=== PATIENT | male | born 1945 | race Caucasian/White ===

== ENCOUNTER 2017-12-09 05:37 | Day surgery (SDC) | payer MEDICARE, BC ==
[~2017-12-09] VITALS: Ht 177.8 cm; Wt 91.4 kg
[2017-12-09] VITALS (15 sets, daily range): BP systolic 103–119; BP diastolic 49–89; Ht 177.8 cm; Wt 91.4 kg
--- NOTE | ~2017-12-09 | OP ---
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 PROCEDURE: Anterior cervical discectomy and fusion with a PEEK interbody cage Biocell stem cell bone stem cell implant for allograft, removal of osteophytes, separate anterior cervical plate and screws from [facility]. SURGEON: Rosemary Farrell MD DESCRIPTION OF TECHNIQUE: After induction of general endotracheal anesthesia, the patient was positioned supine on the operating table with interscapular roll. The neck was prepped and draped in usual sterile fashion. Fluoroscopic x-ray and freer localized the C5 vertebral body. A transverse skin incision was carried out from the midline to the sternocleidomastoid muscle. The platysma was divided with Bovie cautery. Using blunt and sharp dissection with Metzenbaum scissors, I proceeded in an avascular plane medial to the carotid sheath. The C5-C6 and C6-C7 interspaces were identified with fluoroscopic x-ray and a spinal needle. The longus colli muscles were elevated from C5, C6, and C7 vertebral bodies. Osteophytes anteriorly were removed with Adson rongeurs. A self-retaining retractor was placed deep in the longus colli muscles. Valdese distracting pins were placed in the bodies of C5, C6, and C7. Disc space was then incised in each at C5-C6 and C6-C7 under distraction. Disc material was removed with curettes and pituitary rongeurs. Osteophytes were drilled away posteriorly with a Midas-Suman drill under microscope. The posterior longitudinal ligament was removed with Cloward rongeurs. Foraminotomies were carried out on both C5-C6 and C6-C7 and osteophytes removed posteriorly at C5-C6 and C6-C7 and uncovertebral joint on both sides. Following this, the dura was decompressed well at each level. A separate PEEK interbody cage was placed in the disc space at C5-C6 and C6-C7. Each cage was 8 mm in height. Prior to this, each cage was filled with Biocell stem cell bone stem cell allograft. A midline anterior cervical plate was used to span C5, C6, and C7 interspaces. Then, 18 mm screws were placed through the holes of the plate and the locking cams were tightened down over the screw heads. Meticulous hemostasis was maintained throughout the wound. The wound was irrigated with copious amounts of Ancef irrigant solution. The platysma and subdermal layer was closed with interrupted 3-0 Vicryl suture and the skin was closed with Steri-Strips and benzoin. A sterile dressing was applied to the wound. The patient was awakened in good condition and taken to recovery. All counts were reported as correct. Estimated blood loss was minimal. TRANSINT:[id number] Voice Confirmation ID: [id number] DOCUMENT ID: [id number] OPERATIVE REPORT [id number] BELA NEW, ROSEMARY SHANNON at 1607 CC: [id number] DICTATION DATE: 12/09/17 1110 TRANSPORTATION DISPATCHER: 12/09/17 1244 [facility] 12/10/17 [id number] [place] [address]
[~2017-12-09 05:37] MED LIST: FLOMAX0.4 MG PO; LOTENSIN HCT 21 EAC1 PO; OMEPRAZOLE40 MG PO; STERAPRED 5MG 125 MG PO
[2017-12-09 06:43] LABS: HEMATOCRIT 46.9 % (42.0-54.0); MCH 31.5 pg (26.0-34.0); MCHC 34.1 g/dL (31.0-37.0); MCV 92.3 fL (80.0-100.0); MEAN PLATELET VOLUME 9.4 fL (7.4-10.4); RBC 5.08 10x6/uL (4.20-6.10); RDW 12.9 % (11.5-14.5); WBC 14.1 10x3/uL (4.8-10.8)
[2017-12-10] VITALS (11 sets, daily range): BP systolic 96–128; BP diastolic 64–83
== END 2017-12-10 10:43 | disposition home or self-care (01) ==
LOC: D.OPS 05:37 → D.CVICU 05:37 → D.SDCHOLD 05:37 → EDSTATUS 07:30 → D.SDCHOLD 10:57 → D.CVICU 10:57 → D.OPS 12-10 10:43 → D.CVICU 12-10 10:43
PROVIDERS: Anesthesiology; Neurological Surgery
PROC: 0RB30ZZ Excision of Cervical Vertebral Disc, Open Approach (ICD-10-PCS; 2017-12-09)
PROC: 0RG20A0 Fusion of 2 or more Cervical Vertebral Joints with Interbody Fusion Device, Anterior Approach, Anterior Column, Open Approach (ICD-10-PCS; principal; 2017-12-09 07:30)
PROC: 0RG20K0 Fusion of 2 or more Cervical Vertebral Joints with Nonautologous Tissue Substitute, Anterior Approach, Anterior Column, Open Approach (ICD-10-PCS; 2017-12-09 07:30)
DX: M50.123 Cervical disc disorder at C6-C7 level with radiculopathy (principal); M50.222 Other cervical disc displacement at C5-C6 level